=== PATIENT | male | born 1955 | race Caucasian/White ===

== ENCOUNTER → 2019-08-30 14:26 | Outpatient (BNVA) | payer OTHER, SELFPAY | PROVIDERS: Family Provider Nurse Practitioner Family; PCP Nurse Practitioner Family; Referring Provider Podiatrist Foot & Ankle Surgery; Visit Provider Podiatrist Foot & Ankle Surgery | DX: M79.671 Pain in right foot (principal) | CPT/HCPCS: 73630 ==

== ENCOUNTER → 2019-12-12 08:57 | Outpatient (BNVA) | payer OTHER, SELFPAY | PROVIDERS: Family Provider Nurse Practitioner Family; PCP Nurse Practitioner Family; Visit Provider Nurse Practitioner Family | DX: I10 Essential (primary) hypertension (principal); Z12.5 Encounter for screening for malignant neoplasm of prostate; N52.9 Male erectile dysfunction, unspecified | CPT/HCPCS: 80053; 80061; G0103 ==

== ENCOUNTER → 2020-09-12 08:45 | Outpatient (BNVA) | payer OTHER, SELFPAY | PROVIDERS: Family Provider Nurse Practitioner Family; PCP Nurse Practitioner Family; Visit Provider Nurse Practitioner Family | DX: I10 Essential (primary) hypertension (principal); Z12.5 Encounter for screening for malignant neoplasm of prostate | CPT/HCPCS: 80053; 80061; G0103 ==

== ENCOUNTER → 2021-08-18 16:04 | Outpatient (BNVA) | payer OTHER, SELFPAY | PROVIDERS: Family Provider Nurse Practitioner Family; PCP Nurse Practitioner Family; Visit Provider Nurse Practitioner | DX: R05.9 Cough, unspecified (principal); J10.1 Influenza due to other identified influenza virus with other respiratory manifestations | CPT/HCPCS: 87400 ==

== ENCOUNTER → 2021-10-16 10:13 | Outpatient (BNVA) | payer OTHER, SELFPAY | PROVIDERS: Family Provider Nurse Practitioner Family; Visit Provider Family Medicine | DX: I10 Essential (primary) hypertension (principal); N52.9 Male erectile dysfunction, unspecified; E78.2 Mixed hyperlipidemia; Z76.89 Persons encountering health services in other specified circumstances; Z12.11 Encounter for screening for malignant neoplasm of colon | CPT/HCPCS: 80053; 80061; 84153; 85025 ==

== ENCOUNTER 2021-10-31 06:03 | Day surgery (SDC) | payer OTHER, SELFPAY ==
[2021-10-30 07:22] VITALS: BMI 25.8
[2021-10-31 06:24] VITALS: BP 147/98; PULSE 52; RESP 16; TEMP 36.2; O2SAT 95
[2021-10-31] MEDS: sodium chloride 0.9% 1,000 ML 30 ML IV (06:30)
--- NOTE | 2021-10-31 06:46 | P.ANESASSM_ITS ---
Pre-Anesthetic Assessment Height/Weight: Height 1.75 m Weight 79.379 kg Temp Pulse Resp BP Pulse Ox 97.2 F L 52 L 16 147/98 95 10/31/21 06:24 10/31/21 06:24 10/31/21 06:24 10/31/21 06:24 10/31/21 06:24 Operation Date: 10/31/21 07:30 Proposed Procedures p screening colonoscopy 90814/Z12.11(Not Applicable) - Jose Maria Christiansen DO Familial anesthetic complications: NOne Was Beta Stuart taken within 24 hours: N/A Was Clonidine taken within 24 hours: N/A Last intake: Intake Last Liquid Date 10/30/21 Last Liquid Time 22:30 Last Solid Date 10/29/21 Last Solid Time 18:00 Social No alcohol and No tobacco Exam alert, oriented x 3, clear to auscultation bilaterally and regular rate & rhythm Airway Mallampati: Class III Dentition: full Pulmonary None reported CV/HEM Hypertension None reported Hepatic None reported GI None reported Metabolic None reported Musc/skel None reported Neuropsych None reported Anesthetic Plan ASA status: 2 Anesthesia: MAC Risk of > 500 ml blood loss (7ml/kg in children): No Medications/Allergies Home Medications Medication Instructions Recorded Confirmed Last Taken Type hydrochlorothiazide 12.5 mg tablet 12.5 mg PO DAILY #90 tab 10/16/21 10/31/21 10/30/21 Rx lisinopril 40 mg tablet 40 mg PO DAILY #90 tab 10/16/21 10/31/21 10/30/21 Rx sildenafil 50 mg tablet 50 mg PO DAILY PRN #10 tab 10/16/21 10/31/21 10/30/21 Rx Allergies Allergy/AdvReac Type Severity Reaction Status Date / Time No Known Allergies Allergy Verified 10/31/21 06:23 REPLACED BY [facility] Anesthesia Medical History Hypertension Family History Family/Other Hypertension Denies family history of Diabetes CAD (coronary artery disease) Clotting disorder Dementia Hyperlipidemia Psychiatric illness Chronic kidney disease (CKD) Suicide Anesthesia complication Bleeding disorder Family history of premature coronary artery disease Lung disease Cancer Stroke Social History Smoking and tobacco status: never smoked Alcohol intake: never Current occupational status: employed Data Anesthesia Cardiac Studies: No Data to Display
--- NOTE | 2021-10-31 07:58 | PM.HP ---
Providers/Chief Complaint Primary Care Provider: Garrett Miller DO History of Present Illness Walt Howell Jr is a 66 year old male here for screening colonoscopy. This is his first screening colonoscopy. He denies any abdominal or bowel complaints. He has no family history of colon cancer Review of Systems General: Reports: 10 or more systems reviewed and unremarkable except in HPI and below Medications/Allergies Home Medications Medication Instructions Recorded Confirmed Last Taken Type hydrochlorothiazide 12.5 mg tablet 12.5 mg PO DAILY #90 tab 10/16/21 10/31/21 10/30/21 Rx lisinopril 40 mg tablet 40 mg PO DAILY #90 tab 10/16/21 10/31/21 10/30/21 Rx sildenafil 50 mg tablet 50 mg PO DAILY PRN #10 tab 10/16/21 10/31/21 10/30/21 Rx Allergies Allergy/AdvReac Type Severity Reaction Status Date / Time No Known Allergies Allergy Verified 10/31/21 06:23 PFSH Acute PFSH: Medical History Hypertension Family History Family/Other Hypertension Denies family history of Diabetes CAD (coronary artery disease) Clotting disorder Dementia Hyperlipidemia Psychiatric illness Chronic kidney disease (CKD) Suicide Anesthesia complication Bleeding disorder Family history of premature coronary artery disease Lung disease Cancer Stroke Social History Smoking and tobacco status: never smoked Alcohol intake: never Current occupational status: employed Vitals/I&O/Wt Last Vital Signs Temp 97.2 F L 10/31/21 06:24 Pulse 52 L 10/31/21 06:24 Resp 16 10/31/21 06:24 BP 147/98 10/31/21 06:24 Pulse Ox 95 10/31/21 06:24 Weight last 48 hrs Weight 175 lb Physical Exam Narrative: General : Patient is well developed , no acute distress, oriented x3 Head : Normal cephalic, a-traumatic. Ears : Pinnae and external canal are normal. Hearing is normal. Eyes : PERRLA, Sclera and injection are normal. No conjunctival discharge. Nose : Mucous membranes are without erythema. Throat : buccal mucosa is normal, gums are without significant recession or hypertrophy. Lungs : Equal chest rise bilaterally, no use of accessory muscles, trachea is midline. Cor : Rate and rhythm are normal. Abdomen : Soft, ND, NT, no g/r/m Extremities : No edema, no cyanosis or clubbing, dorsalis pedis pulses are present bilaterally, non-tender to palpation of calves. Upper extremities are normal bilaterally. Back : non-tender to palpation, no CVA tenderness. Neuro : CN II - XII intact, Upper and lower extremities have equal and full strength A&P Assessment and plan (1) Screening for malignant neoplasm of colon: Status: Acute Plan Colonoscopy, screening The risks and benefits of the procedure, including bleeding, infection, intestinal perforation requiring surgery, missed lesion, or explained to the patient. He is understanding of the risks and wishes to proceed. Attestations Medical Necessity Statement*: none Coding Level of Care Code Acute Technology Assistant for Chg Fwd Diagnoses Screening for malignant neoplasm of colon Z12.11
[2021-10-31 08:20] VITALS: BP 100/70; PULSE 57; RESP 16; TEMP 36.4; O2SAT 95
[2021-10-31 08:25] VITALS: BP 94/70; PULSE 51; RESP 16; O2SAT 96
[2021-10-31 08:30] VITALS: BP 105/70; PULSE 51; RESP 18; O2SAT 97
--- NOTE | 2021-10-31 08:54 | ANE.PACU2 ---
Inpatient post-anesthesia follow up: Airway intact: Yes Vital signs: Temperature 97.6 F Pulse Rate 51 Respiratory Rate 18 Blood Pressure 105/70 Pulse Oximetry 97 Oxygen Delivery Me thod Room Air Oxygen Flow Rate 2 Fraction of Inspir ed Oxygen Hydration adequate: Yes Nausea and vomiting: No Pain level: 1 Mental status: Baseline
== END 2021-10-31 08:50 | disposition home or self-care (01) ==
PROVIDERS: PCP Family Medicine; Visit Provider Surgery
PROC: 0DJD8ZZ Inspection of Lower Intestinal Tract, Via Natural or Artificial Opening Endoscopic (ICD-10-PCS; CPT 45378; principal; 2021-10-31 07:30)
DX: Z12.11 Encounter for screening for malignant neoplasm of colon (principal); I10 Essential (primary) hypertension; K57.30 Diverticulosis of large intestine without perforation or abscess without bleeding; K64.4 Residual hemorrhoidal skin tags
CPT/HCPCS: 45378; J2704; J7030

== ENCOUNTER → 2023-02-02 09:28 | Outpatient (BNVA) | payer OTHER, SELFPAY | PROVIDERS: PCP Family Medicine; Visit Provider Family Medicine | DX: E78.2 Mixed hyperlipidemia (principal); I10 Essential (primary) hypertension; Z12.5 Encounter for screening for malignant neoplasm of prostate; D49.2 Neoplasm of unspecified behavior of bone, soft tissue, and skin | CPT/HCPCS: 80053; 80061; 84403; 84443; 85025; 88304; G0103 ==

== ENCOUNTER → 2024-02-09 09:48 | Outpatient (BNVA) | payer OTHER, SELFPAY | PROVIDERS: PCP Family Medicine; Visit Provider Family Medicine | DX: I10 Essential (primary) hypertension (principal); E78.2 Mixed hyperlipidemia; Z12.5 Encounter for screening for malignant neoplasm of prostate; E55.9 Vitamin D deficiency, unspecified | CPT/HCPCS: 80053; 80061; 82306; 84443; G0103 ==

== ENCOUNTER → 2024-08-31 07:48 | Outpatient (BNVA) | payer OTHER, SELFPAY | PROVIDERS: PCP Family Medicine; Visit Provider Podiatrist Foot & Ankle Surgery | DX: M79.672 Pain in left foot (principal); G57.62 Lesion of plantar nerve, left lower limb | CPT/HCPCS: 73630 ==